=== PATIENT | male | born 1965 | race Caucasian/White ===

== ENCOUNTER 2020-11-29 16:07 | Emergency (ER) | payer BC, SELFPAY ==
[2020-11-29] VITALS (7 sets, daily range): BP systolic 142–199; BP diastolic 100–126; PULSE 100–106; RESP 16–29; TEMP 36.6; O2SAT 94–100; BMI 35.9
--- NOTE | 2020-11-29 16:19 | CTR_ITS ---
PROCEDURE INFORMATION: Exam: CT Abdomen And Pelvis With Contrast Exam date and time: 11/29/2020 5:38 PM Age: 55 years old Clinical indication: Abdominal pain; Localized; Left upper quadrant (luq); Additional info: Abd pain TECHNIQUE: Imaging protocol: Computed tomography of the abdomen and pelvis with intravenous contrast. Radiation optimization: All CT scans at this facility use at least one of these dose optimization techniques: automated exposure control; mA and/or kV adjustment per patient size (includes targeted exams where dose is matched to clinical indication); or iterative reconstruction. Contrast material: OMNI 300; Contrast volume: 95 ml; Contrast route: INTRAVENOUS (IV); COMPARISON: No relevant prior studies available. RADIATION DOSE METRICS: Total DLP (mGy-cm): 1666.5 FINDINGS: Lungs: The lung bases appear unremarkable. Liver: Scattered 3 mm hypodensities in the liver, too small to characterize. No acute hepatic abnormality. Gallbladder and bile ducts: Gallbladder is mildly distended, measuring 12 cm longitudinal by 4 cm transverse. No gallstones or gallbladder wall thickening. No biliary dilatation. Pancreas: The pancreas is normal in appearance. No pancreatic duct dilatation. Spleen: The spleen is normal in size and appearance. Adrenal glands: The adrenal glands appear within normal limits. Kidneys and ureters: Simple appearing bilateral renal cysts measuring up to 2.5 cm in diameter. No hydronephrosis. The ureters are unremarkable. Stomach and bowel: No acute gastric abnormality demonstrated. The small bowel is unremarkable as demonstrated. Appendix: The appendix is normal in appearance. No evidence of appendicitis. Intraperitoneal space: No pneumoperitoneum. No significant fluid collection. Vasculature: The aorta is atherosclerotic. No aortic aneurysm. Lymph nodes: No pathologically enlarged lymph nodes are demonstrated. Urinary bladder: The urinary bladder is unremarkable in appearance. Reproductive: Unremarkable as visualized. Bones/joints: Degenerative spine changes are noted. Soft tissues: Unremarkable. CT/CT abdomen pelvis w con* [id number] IMPRESSION: 1. Scattered 3 mm hypodensities in the liver, too small to characterize. No acute hepatic abnormality. 2. Gallbladder is mildly distended, measuring 12 cm longitudinal by 4 cm transverse. No gallstones or gallbladder wall thickening. No biliary dilatation. Consider gallbladder ultrasound if clinically indicated. 3. No acute bowel abnormality identified. COMMENTS: Consistent with the [employer] [place] [employer]'s Incidental Findings Committee white paper (J Am Valentine Radiol 2018): Any incidental renal lesion less than 1 cm or classified as too small to characterize, or any incidental cystic renal lesion characterized as simple-appearing, is likely benign. No follow-up imaging is recommended for these lesions per consensus recommendations based on imaging criteria. Radiation Dose CTDIVOL = (mGy): DLP = 1666.5 (mGy-cm)
--- NOTE | 2020-11-29 16:19 | ECG_ITS ---
[facility] Test Date: 2020-11-29 Pat Name: Samy Beth Department: Room: Gender: Male Control Manager: : 1965 Requested By: Michele Mohamud Order Number: [id number] Apolinar MD: Desirae Whitaker M.D. Measurements Intervals [place] Rate: 91 P: [place]: QRS: -42 QRSD: 101 T: 15 QT: 355 QTc: 439 Interpretive Statements ATRIAL FIBRILLATION PATTERN CONSISTENT WITH PULMONARY DISEASE INFERIOR MYOCARDIAL INFARCTION , PROBABLY OLD [40+ ms Q WAVE AND/OR ST/T ABNORMALITY IN II/aVF] No previous ECG available for comparison Electronically Signed On 11-29-2020 18:06:21 INVESTMENT RECOVERY TECHNICIAN by Desirae Whitaker M.D. [id number]
--- NOTE | 2020-11-29 16:20 | W.ED.ABDPA2 ---
Documented by User: Michele Valladares DO 11/30/20 06:51 HPI - Abdominal Pain General: Chief Complaint: Abdominal Pain Stated Complaint: L SIDE ABD PAIN Time Seen by Provider: 11/29/20 16:18 History of Present Illness: HPI narrative: 55-year-old male comes to clinic left upper quadrant abdominal pain began at around 230 this morning. No nausea vomiting or diarrhea no dysuria urgency or frequency. Denies any hematuria. He is not had any vomiting or diarrhea he tried some laxatives that actually seem to have made it worse. MD elicited complaint: abdominal pain Pertinent past history: none Onset (ago): hour(s) Pain Consistency: constant Quality: cramping Exacerbating factors: movement Relieving factors: rest Associated Symptoms: Reports anorexia, bloating, change in bowel habits, constipation, GI cramping, nausea and poor appetite; Denies belching, change in stool character, chills, coffee ground emesis, diarrhea, dyspepsia, dysuria, excessive flatus, fever(s), heartburn, hematochezia, hematuria, hematemesis, fecal incontinence, loose stools, melena, syncope and vomiting Review of Systems Const: Denies: fever(s) or chills ENMT: Denies: throat pain, ear or mastoid pain, nasal discharge or nasal congestion Card: Denies: syncope Resp: Denies: dyspnea, productive cough or non-productive cough GI: Reports: nausea, constipation, bloating, GI cramping and change in bowel habits; Denies: vomiting, hematemesis, coffee ground emesis, heartburn, diarrhea, belching, excessive flatus, fecal incontinence, change in stool character, hematochezia or melena : Denies: dysuria or hematuria Skin/Breast: Denies: rash or pruritus Physical Exam Const: COMMON NORMALS: no acute distress GENERAL APPEARANCE: cooperative and comfortable ORIENTATION/CONSCIOUSNESS: Yes awake, Yes oriented to person, Yes oriented to place and Yes oriented to time HENMT: COMMON NORMALS: normocephalic, atraumatic and hearing grossly normal bilaterally HEAD & SCALP: normocephalic and atraumatic Neck/C-Spine: COMMON NORMALS: no JVD Resp: COMMON NORMALS: normal respiratory effort, No retractions, No use of accessory muscles and clear to auscultation bilaterally AUSCULTATION: clear to auscultation bilaterally Cardio: COMMON NORMALS: no JVD, regular rate, regular rhythm and No murmurs present (Cardio) RATE: regular rate RHYTHM: regular rhythm GI: COMMON NORMALS: Soft to palpation and No hepatosplenomegaly present AUSCULTATION: Yes normoactive bowel sounds PALPATION: Yes Soft to palpation, No Tenderness to palpation present (GI), No Guarding due to palpation present (GI) and Yes No hepatosplenomegaly present Extremity: COMMON NORMALS: normal to inspection, capillary refill normal, no clubbing, cyanosis or edema, no calf tenderness and no pedal edema Neuro: SENSORIUM/ORIENTATION: Yes oriented to person, Yes oriented to place and Yes oriented to time Skin: COMMON NORMALS: no rashes or lesions noted GENERAL SKIN EXAM: no rashes or lesions noted Course Vital Signs: Vital signs: Vital Signs Temperature 97.8 F 11/29/20 16:08 Pulse Rate 102 H 11/29/20 20:34 Respiratory Rate 18 11/29/20 20:34 Blood Pressure 159/110 11/29/20 20:34 Pulse Oximetry 95 11/29/20 20:34 MDM - Abdominal Pain MDM Narrative: Medical decision making narrative: CT pending care turned to Dr. Toscano at change of shift. He is chart for final disposition diagnosis Lab Data: Labs: Lab Results 11/29/20 11/29/20 11/29/20 Range/Units 16:30 16:30 17:19 WBC 17.3 H (4.0-10.0) 10^3/ uL RBC 5.83 H (4.1-5.3) 10^6/u L Hgb 16.2 (11.7-16.6) g/dL Hct 48.2 (42.0-52.0) % MCV 82.7 (80-94) fL MCH 27.8 L (28.0-34.0) pg MCHC 33.6 (30.0-36.0) g/dL RDW 13.2 (12.1-15.1) % Plt Count 325 (130-400) 10^3/c mm MPV 10.0 (7.4-10.4) fL Neut % (Auto) 78.9 % Lymph % (Auto) 13.8 % [place] % (Auto) 6.2 % Eos % (Auto) 0.3 % Baso % (Auto) 0.3 % Neut # (Auto) 13.64 H (1.8-7.7) 10^3/u L Lymph # (Auto) 2.4 (0.8-4.8) 10^3/u L [place] # (Auto) 1.1 H (0.2-0.9) 10^3/u L Eos # (Auto) 0.1 (0.0-0.8) 10^3/u L Baso # (Auto) 0.1 (0.0-0.1) 10^3/u L Nucleated RBC % (a uto) 0 % Nucleated RBCs # 0.0 /100WBC Sodium 136 (136-145) mmol/L Potassium 3.2 L (3.5-5.1) mmol/L Chloride 97 L (98-107) mmol/L Carbon Dioxide 25 (22-29) mmol/L Anion Gap 17.2 (5-19) BUN 11 (6-20) mg/dL Creatinine 0.8 (0.7-1.2) mg/dL GFR Calculation 99.6 (90-130) mL/min Glucose 99 (65-115) mg/dL Calculated Osmolal ity 281 L (285-295) mOsm/k g Calcium 9.7 (8.5-10.5) mg/dL Magnesium 1.7 (1.7-2.3) mg/dL Total Bilirubin 0.3 (0.15-1.2) mg/dL AST 17 (0-40) U/L ALT 24 (0-41) U/L Alkaline Phosphata se 63 (40-130) IU/L Creatine Kinase 75 (39-308) U/L Total Protein 7.4 (6.6-8.7) g/dL Albumin 4.4 (3.5-5.2) g/dL Globulin 3.0 (1.3-4.6) g/dL Lipase 40 (13-60) U/L Urine Color Yellow (Yellow) Urine Appearance Clear (CLEAR) Urine pH 5.0 (5-7) Ur Specific Gravit y 1.015 (1.005-1.030) Urine Protein Neg (Negative) Urine Glucose (UA) Norm (Normal) Urine Ketones 2+ H (Negative) Urine Blood 2+ H (Negative) Urine Nitrate Negative (Negative) Urine Bilirubin Neg (Negative) Urine Urobilinogen Norm (Negative) mg/dL Ur Leukocyte Shari ase Negative (Negative) Urine RBC 0-4 H (0-2) /hpf Urine WBC None (0-5) /hpf Ur Squamous Epith Cells 0-4 H (0-5) /hpf Amorphous Sediment Not Reportable Urine Bacteria Trace (NONE) /hpf Discharge Plan Discharge Patient Disposition: Home Clinical Impression: Biliary colic Condition: Stable Prescriptions: New [place] 5-325 mg tablet 1 tab PO Q6H PRN (Reason: pain) Qty: 14 RF: 0 ondansetron 4 mg tablet,disintegrating 4 mg PO Q6H PRN (Reason: nausea and vomiting) Qty: 14 RF: 0 levofloxacin 750 mg tablet 750 mg PO DAILY 5 Days Qty: 5 RF: 0 No Action diltiazem HCl 180 mg capsule,extended release 24hr 180 mg PO DAILY@05 RF: 0 Tylenol Extra Strength 500 mg Tablet 1,000 mg PO PRN RF: 0 Benadryl 25 mg Capsule 50 mg PO PRN RF: 0 metoprolol tartrate 50 mg tablet 50 mg PO Q12H RF: 0 hydrochlorothiazide 25 mg tablet 25 mg PO DAILY@05 RF: 0 mupirocin 2 % ointment 1 applic TOPICAL DAILY RF: 0 Miralax 17 gram/dose Powder 17 g PO ONCE RF: 0 Xarelto 20 mg tablet 20 mg PO DAILY@18 RF: 0 Discharge Orders: Discharge ED (Routine); Ordered 11/29/20 Ordered By: He Toscano Referrals: Moe Betts MD [Physician] - 1-3 days Luis Mclean [Primary Care Provider] - Discharge Diet: Advance as tolerated Discharge Activity: Resume usual activity Patient Instructions: Biliary Colic (ED), Abdominal Pain (ED) Coding Level of Care Code ED Master Of Ceremonies for Chg Fwd Exam Comprehensive Documented by User: He Toscano MD 11/29/20 20:23 HPI - Abdominal Pain General: Chief Complaint: Abdominal Pain Stated Complaint: L SIDE ABD PAIN Time Seen by Provider: 11/29/20 16:18 Course Vital Signs: Vital signs: Vital Signs Temperature 97.8 F 11/29/20 16:08 Pulse Rate 102 H 11/29/20 20:34 Respiratory Rate 18 11/29/20 20:34 Blood Pressure 159/110 11/29/20 20:34 Pulse Oximetry 95 11/29/20 20:34 MDM - Abdominal Pain MDM Narrative: Medical decision making narrative: Samy presents with abdominal pain is likely biliary colic. He does have a gallstone in the neck of his gallbladder. He has no signs of cholecystitis or common bile duct dilatation. His pain is much improved here. We will place him on [place] having follow-up with surgery. He is to return if worsening. His abdominal exam at discharge is benign with no tenderness. Lab Data: Labs: Lab Results 11/29/20 11/29/20 11/29/20 Range/Units 16:30 16:30 17:19 WBC 17.3 H (4.0-10.0) 10^3/ uL RBC 5.83 H (4.1-5.3) 10^6/u L Hgb 16.2 (11.7-16.6) g/dL Hct 48.2 (42.0-52.0) % MCV 82.7 (80-94) fL MCH 27.8 L (28.0-34.0) pg MCHC 33.6 (30.0-36.0) g/dL RDW 13.2 (12.1-15.1) % Plt Count 325 (130-400) 10^3/c mm MPV 10.0 (7.4-10.4) fL Neut % (Auto) 78.9 % Lymph % (Auto) 13.8 % [place] % (Auto) 6.2 % Eos % (Auto) 0.3 % Baso % (Auto) 0.3 % Neut # (Auto) 13.64 H (1.8-7.7) 10^3/u L Lymph # (Auto) 2.4 (0.8-4.8) 10^3/u L [place] # (Auto) 1.1 H (0.2-0.9) 10^3/u L Eos # (Auto) 0.1 (0.0-0.8) 10^3/u L Baso # (Auto) 0.1 (0.0-0.1) 10^3/u L Nucleated RBC % (a uto) 0 % Nucleated RBCs # 0.0 /100WBC Sodium 136 (136-145) mmol/L Potassium 3.2 L (3.5-5.1) mmol/L Chloride 97 L (98-107) mmol/L Carbon Dioxide 25 (22-29) mmol/L Anion Gap 17.2 (5-19) BUN 11 (6-20) mg/dL Creatinine 0.8 (0.7-1.2) mg/dL GFR Calculation 99.6 (90-130) mL/min Glucose 99 (65-115) mg/dL Calculated Osmolal ity 281 L (285-295) mOsm/k g Calcium 9.7 (8.5-10.5) mg/dL Magnesium 1.7 (1.7-2.3) mg/dL Total Bilirubin 0.3 (0.15-1.2) mg/dL AST 17 (0-40) U/L ALT 24 (0-41) U/L Alkaline Phosphata se 63 (40-130) IU/L Creatine Kinase 75 (39-308) U/L Total Protein 7.4 (6.6-8.7) g/dL Albumin 4.4 (3.5-5.2) g/dL Globulin 3.0 (1.3-4.6) g/dL Lipase 40 (13-60) U/L Urine Color Yellow (Yellow) Urine Appearance Clear (CLEAR) Urine pH 5.0 (5-7) Ur Specific Gravit y 1.015 (1.005-1.030) Urine Protein Neg (Negative) Urine Glucose (UA) Norm (Normal) Urine Ketones 2+ H (Negative) Urine Blood 2+ H (Negative) Urine Nitrate Negative (Negative) Urine Bilirubin Neg (Negative) Urine Urobilinogen Norm (Negative) mg/dL Ur Leukocyte Shari ase Negative (Negative) Urine RBC 0-4 H (0-2) /hpf Urine WBC None (0-5) /hpf Ur Squamous Epith Cells 0-4 H (0-5) /hpf Amorphous Sediment Not Reportable Urine Bacteria Trace (NONE) /hpf Imaging Data ^: CT Abd/Pel: Radiologist's impression: [address] [place] [address] CT Scan Report Signed Patient: Samy Beth Unit #: [id number] : 1965 Age/Sex: 55 / M ADM Date: 11/29/20 Loc: ER Room/Bed: Attending Dr: Ordering Provider/Ordering MD: Michele Valladares DO Date of Service: 11/29/20 Procedure(s): CT abdomen pelvis w con* [id number] Accession Number(s): [id number] Report Number: [id number] PROCEDURE INFORMATION: Exam: CT Abdomen And Pelvis With Contrast Exam date and time: 11/29/2020 5:38 PM Age: 55 years old Clinical indication: Abdominal pain; Localized; Left upper quadrant (luq); Additional info: Abd pain TECHNIQUE: Imaging protocol: Computed tomography of the abdomen and pelvis with intravenous contrast. Radiation optimization: All CT scans at this facility use at least one of these dose optimization techniques: automated exposure control; mA and/or kV adjustment per patient size (includes targeted exams where dose is matched to clinical indication); or iterative reconstruction. Contrast material: OMNI 300; Contrast volume: 95 ml; Contrast route: INTRAVENOUS (IV); COMPARISON: No relevant prior studies available. RADIATION DOSE METRICS: Total DLP (mGy-cm): 1666.5 FINDINGS: Lungs: The lung bases appear unremarkable. Liver: Scattered 3 mm hypodensities in the liver, too small to characterize. No acute hepatic abnormality. Gallbladder and bile ducts: Gallbladder is mildly distended, measuring 12 cm longitudinal by 4 cm transverse. No gallstones or gallbladder wall thickening. No biliary dilatation. Pancreas: The pancreas is normal in appearance. No pancreatic duct dilatation. Spleen: The spleen is normal in size and appearance. Adrenal glands: The adrenal glands appear within normal limits. Kidneys and ureters: Simple appearing bilateral renal cysts measuring up to 2.5 cm in diameter. No hydronephrosis. The ureters are unremarkable. Stomach and bowel: No acute gastric abnormality demonstrated. The small bowel is unremarkable as demonstrated. Appendix: The appendix is normal in appearance. No evidence of appendicitis. Intraperitoneal space: No pneumoperitoneum. No significant fluid collection. Vasculature: The aorta is atherosclerotic. No aortic aneurysm. Lymph nodes: No pathologically enlarged lymph nodes are demonstrated. Urinary bladder: The urinary bladder is unremarkable in appearance. Reproductive: Unremarkable as visualized. Bones/joints: Degenerative spine changes are noted. Soft tissues: Unremarkable. CT/CT abdomen pelvis w con* [id number] IMPRESSION: 1. Scattered 3 mm hypodensities in the liver, too small to characterize. No acute hepatic abnormality. 2. Gallbladder is mildly distended, measuring 12 cm longitudinal by 4 cm transverse. No gallstones or gallbladder wall thickening. No biliary dilatation. Consider gallbladder ultrasound if clinically indicated. 3. No acute bowel abnormality identified. Discharge Plan Discharge Patient Disposition: Home Clinical Impression: Biliary colic Condition: Stable Prescriptions: [place] 5-325 mg tablet 1 tab PO Q6H PRN (Reason: pain) Qty: 14 RF: 0 ondansetron 4 mg tablet,disintegrating 4 mg PO Q6H PRN (Reason: nausea and vomiting) Qty: 14 RF: 0 levofloxacin 750 mg tablet 750 mg PO DAILY 5 Days Qty: 5 RF: 0 No Action diltiazem HCl 180 mg capsule,extended release 24hr 180 mg PO DAILY@05 RF: 0 Tylenol Extra Strength 500 mg Tablet 1,000 mg PO PRN RF: 0 Benadryl 25 mg Capsule 50 mg PO PRN RF: 0 metoprolol tartrate 50 mg tablet 50 mg PO Q12H RF: 0 hydrochlorothiazide 25 mg tablet 25 mg PO DAILY@05 RF: 0 mupirocin 2 % ointment 1 applic TOPICAL DAILY RF: 0 Miralax 17 gram/dose Powder 17 g PO ONCE RF: 0 Xarelto 20 mg tablet 20 mg PO DAILY@18 RF: 0 Discharge Orders: Discharge ED (Routine); Ordered 11/29/20 Ordered By: He Toscano Referrals: Moe Betts MD [Physician] - 1-3 days Luis Mclean [Primary Care Provider] - Discharge Diet: Advance as tolerated Discharge Activity: Resume usual activity Patient Instructions: Biliary Colic (ED), Abdominal Pain (ED) Coding Level of Care Code ED Master Of Ceremonies for Chg Fwd Exam Comprehensive
[2020-11-29] MEDS: sodium chloride 0.9% 1,000 ML 999 ML IV (16:44)
[2020-11-29] MEDS: morphine 4 mg/mL SDV 1 mL IVP ×3 (16:44→19:46)
[2020-11-29] MEDS: ondansetron 2 mg/ML SDV 2 mL 4 MG IVP (16:44)
[2020-11-29 16:53] LABS: Basophils # 0.1 10^3/uL (0.0-0.1); Basophils % 0.3 %; Eosinophils # 0.1 10^3/uL (0.0-0.8); Eosinophils % 0.3 %; Hematocrit 48.2 % (42.0-52.0); Hemoglobin 16.2 g/dL (11.7-16.6); Lymphocytes # 2.4 10^3/uL (0.8-4.8); Lymphocytes % 13.8 %; Mean Corpuscular HGB Conc 33.6 g/dL (30.0-36.0); Mean Corpuscular Hemoglobin 27.8 pg (28.0-34.0); Mean Corpuscular Volume 82.7 fL (80-94); Monocytes # 1.1 10^3/uL (0.2-0.9); Monocytes % 6.2 %; Neutrophils # 13.64 10^3/uL (1.8-7.7); Neutrophils % 78.9 %; Nucleated Red Blood Cells % 0 %; Platelet Count 325 10^3/cmm (130-400); Red Blood Count 5.83 10^6/uL (4.1-5.3); Red Cell Distribution Width 13.2 % (12.1-15.1); White Blood Count 17.3 10^3/uL (4.0-10.0)
[2020-11-29 17:36] LABS: Alanine Aminotransferase 24 U/L (0-41); Albumin Level 4.4 g/dL (3.5-5.2); Alkaline Phosphatase 63 IU/L (40-130); Anion Gap 17.2 (5-19); Aspartate Amino Transferase 17 U/L (0-40); Blood Urea Nitrogen 11 mg/dL (6-20); Calcium 9.7 mg/dL (8.5-10.5); Carbon Dioxide 25 mmol/L (22-29); Chloride 97 mmol/L (98-107); Creatine Phosphokinase 75 U/L (39-308); Glomerular Filtration Rate 99.6 mL/min (90-130); Glucose 99 mg/dL (65-115); Lipase 40 U/L (13-60); Magnesium 1.7 mg/dL (1.7-2.3); Osmolality Calculated 281 mOsm/kg (285-295); Potassium 3.2 mmol/L (3.5-5.1); Sodium 136 mmol/L (136-145); Total Bilirubin 0.3 mg/dL (0.15-1.2); Total Protein 7.4 g/dL (6.6-8.7)
[2020-11-29 17:42] LABS: Add Urine Microscopic? YES; Bilirubin Urine Neg (Negative); Blood Urine 2+ (Negative); Glucose Urine UA Norm (Normal); Ketones Urine 2+ (Negative); Leukocyte Esterase Urine Negative (Negative); Nitrate Urine Negative (Negative); Protein Urine Neg (Negative); Specific Gravity, Urine 1.015 (1.005-1.030); Urine Appearance Clear (CLEAR); Urine Color Yellow (Yellow); Urobilinogen Urine Norm (Negative)
--- NOTE | 2020-11-29 17:48 | PC.NURSE ---
pt to CT scan by stretcher with tech
[2020-11-29 17:59] LABS: Add Urine Culture? No; Bacteria Urine TRACE /hpf; RBC Urine 0-4 /hpf (0-2); Squamous Epithelial Cell Urine 0-4 /hpf (0-5)
[2020-11-29] MEDS: iohexol 300 mg/mL 100 mL Btl IV (18:12)
--- NOTE | 2020-11-29 19:02 | XR_ITS ---
WS: [id number] Exam: XR chest 1V portable [id number] Date/Time of Exam: 11/29/2020 7:06 PM Reason For Exam: cp Comparison 08/08/2009. Findings: The lungs are clear and fully expanded. Costophrenic angles are sharp. No infiltrates. Bronchovascula r relief appears normal. Cardiac silhouette is unremarkable. Bony elements are intact. XR/XR chest 1V portable [id number] IMPRESSION: Unremarkable chest radiograph.
--- NOTE | 2020-11-29 19:29 | US_ITS ---
WS: [id number] ULTRASOUND ABDOMEN LIMITED CLINICAL INFORMATION: abd pain COMPARISON: None. FINDINGS: Liver Size: Mild hepatomegaly Craniocaudal length: 16.3 cm. Echogenicity: Normal. Surface nodularity: None. Mass (size and location): None. Bile ducts Intrahepatic ducts: Normal. Common bile duct diameter: 0.5 cm. Gallbladder Cholelithiasis Gallstones: Gallstone in the neck of the gallbladder. Gallbladder sludge: None. Gallbladder wall thickening: None. Pericholecystic fluid: None. Sonographic Aguiar sign: Absent. Pancreas Normal as visualized. Right kidney: Normal. Hydronephrosis: None. Size: 11.5 cm x 7.1 cm x 6.0 cm. Abdominal aorta and IVC Visualized portions are normal. Ascites: None. US/US gall bladder [id number] IMPRESSION: 1. Mild hepatomegaly. 2. Gallbladder calculus in the gallbladder neck. No gallbladder wall thickenin g or pericholecystic fluid. 3. Normal common bile duct. 4. No hydronephrosis in right kidney.
--- NOTE | 2020-11-30 10:05 | DCPLANNER ---
web services manager had message to schedule a follow up appointment for patient with general surgery. web services manager emailed patients information to both Jennifer and Chelle at [facility] General Surgery. Patients information will be printed and reviewed. Clinic will call patient with appointment information.
--- NOTE | 2020-12-04 12:33 | DCPLANNER ---
Patient has a follow up appointment scheduled for , December 06, [address] at 9:[address] Betts. Clinic will call patient with appointment information.
--- NOTE | 2021-01-23 12:58 | DCPLANNER ---
Patient had a follow up appointment scheduled for 12.06.[address] Betts at general surgery - patient did attend appointment.
== END 2020-11-29 20:38 | disposition home or self-care (01) ==
PROVIDERS: Family Medicine; Emergency Provider Emergency Medicine; PCP Family Medicine
DX: K80.50 Calculus of bile duct without cholangitis or cholecystitis without obstruction (principal)
CPT/HCPCS: 12345; 71045; 74177; 76705; 80053; 81001; 82550; 83690; 83735; 85025; 93005; 96361; 96374; 96375; 96376; 99283; 99284; J2270; J2405; J7030; Q9967

== ENCOUNTER → 2020-12-11 16:54 | Outpatient (BNVA) | payer BC, SELFPAY | PROVIDERS: PCP Family Medicine; Visit Provider Surgery | DX: Z01.812 Encounter for preprocedural laboratory examination (principal); K80.50 Calculus of bile duct without cholangitis or cholecystitis without obstruction | CPT/HCPCS: 87635 ==

== ENCOUNTER → 2020-12-19 10:32 | Outpatient (BNVA) | payer BC, SELFPAY | PROVIDERS: PCP Family Medicine; Referring Provider Surgery; Visit Provider Surgery | DX: Z01.818 Encounter for other preprocedural examination (principal) | CPT/HCPCS: 87635 ==

== ENCOUNTER 2020-12-25 05:38 | Day surgery (SDC) | payer BC, SELFPAY ==
[2020-12-25] VITALS (10 sets, daily range): BP systolic 130–168; BP diastolic 99–113; PULSE 95–109; RESP 12–20; TEMP 36.1–36.2; O2SAT 94–99
[2020-12-25] MEDS: sodium chloride 0.9% 1,000 ML 30 ML IV (06:22)
[2020-12-25] MEDS: heparin 5,000 unit/mL INJ 1 mL 2000 UNIT SUBCUT (06:22)
--- NOTE | 2020-12-25 06:25 | ANES.PREANE2 ---
Pre-Anesthetic Assessment Pre-Anesthetic Assessment: Height/Weight: Height 1.78 m Weight 108.862 kg Temp Pulse Resp BP Pulse Ox 97.0 F L 106 H 18 130/100 97 12/25/20 06:01 12/25/20 06:01 12/25/20 06:01 12/25/20 06:01 12/25/20 06:01 Preop Diagnosis: Symptomatic cholelithiasis Proposed Procedure: Operation Date: 12/25/20 07:00 Proposed Procedures p Laparoscopic Cholecystectomy 58808 k80.50(Not Applicable) - Moe Betts MD Was Beta Jack taken within 24 hours: Yes Last intake: Intake Last Liquid Date 12/24/20 Last Liquid Time 19:00 Last Solid Date 12/23/20 Last Solid Time 20:00 Social: Social History: No alcohol and No tobacco Exam: Pre-Anes Outpt Exam: alert, oriented x 3 and clear to auscultation bilaterally Additional Exam Findings (including area of procedure): irregular Airway: Submandibular: WNL Cervical ROM: WNL MP: 3 Dentition: Full CV/HEM: CV/HEM: Afib, Arrythmia and HTN Metabolic: Metabolic: Morbid obesity Anesthetic Plan: ASA status: 3 Anesthesia: General Risk of > 500 ml blood loss (7ml/kg in children): No Meds/Allergies Current Medications: Current Medications Generic Name Dose Route Start Last Admin Trade Name Freq PRN Reason Stop Dose Admin Sodium Chloride 1,000 mls @ 30 ml s/hr 12/25/20 06:00 12/25/20 06:22 Sodium Chloride 0.9% IV 12/26/20 05:59 30 mls/hr .Q24H RENETTA Administration Data Anesthesia Cardiac Studies: No Data to Display
--- NOTE | 2020-12-25 06:31 | W.PM.OPSUD ---
Surgery/Procedure H&P Update DATE OF PROCEDURE: December 25, 2020 DATE H&P PERFORMED: 12/06/20 H&P UPDATE INFORMATION: I have reviewed H&P completed within last 30 days, I have examined patient prior to procedure and No changes to prior documentation PREOP DIAGNOSIS: Symptomatic cholelithiasis PRIMARY INDICATION FOR PROCEDURE: The same PLANNED PROCEDURE: Operation Date: 12/25/20 07:00 Proposed Procedures p Laparoscopic Cholecystectomy 71721 k80.50(Not Applicable) - Moe Betts MD
[2020-12-25] MEDS: lidocaine 2% INJ 20 mL INJECTION (08:30)
--- NOTE | 2020-12-25 08:35 | PM.OP ---
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 Plan of care; After thorough history physical examination and reviewing the chart and images with my personal intrepreatation.I counseled the patient for laparoscopic cholecystectomy possible open, indications risks including but not limited injury to the common bile duct and/or other viscera,that may require potential future surgical interventions including but not limited to ERCP and or laparatomy that may include Hepatobiliary surgery.Benefits and alternatives all discussed with the patient, and patient did agree to proceed accordingly. All questions have been answered and all concerns have been addressed to patient's satisfaction. Rationale was carefully and clearly discussed with the patient.Appropriate informed consent have been reviewed and signed. Procedure: Patient was identified in the holding area and taken back to the operative suite, placed in supine position intubated by anesthesia . Time-out was done verifying the patient's name/date of /planned procedure and destination after the procedure, all were in agreement. SCDs confirmed to be functioning, preoperative antibiotics administered per protocol, and beta duane protocol was confirmed. Patient was appropriately secured to the table, footboard was applied to the OR table, before prep and drape anesthesia was asked to tilt the table back and forth to make sure that the patient is appropriately secured and she was. Prep and drape of the abdomen was done under the usual sterile technique, followed by that supraumbilical skin incision,skin incision was done by a 15 blade knife, and stay sutures were applied to the fascia and Goldberg trocar technique was used to enter the abdominal without injuring any abdominal viscera, started by low flow gas insufflation followed by a high flow, started with a 10 mm laparoscope and under direct vision there was no evidence of any injuries, the scope then switched to a 30? ,10 millimeter scope and under direct visualization 5 millimeter trocar was inserted in the epigastric region followed by two 5 mm trocars were inserted in the right upper quadrant that was done after injection of local lidocaine 2% at all incision sites. Gallbladder showed acute calculus cholecystitis with extensive edema &with adhesions, fatty liver was appreciated as well. Patient was then positioned in the head up and tilted to the left Ratcheted forceps were introduced into the lateral most 5mm port and was applied unto the fundus of the gallbladder cephalad and using 5 mm tenaculum forceps the infundibulum of the gallbladder was retracted laterally. Using Maryland forceps then L-hook cautery to dissect the peritoneum overlying the Calot's triangle which was then opened medially and laterally until the cystic duct and the cystic artery were skeletonized.Dissection was carried along the body of the gallbladder and after ensuring critical view of safety was identfied. Cystic duct and cystic artery where seen connected to the gallbladder. Clips were applied on the cystic duct towards the common bile duct 1 towards the gallbladder then divided is in sharp scissors,2 clips were then applied onto the cystic artery and 1 towards the gallbladder and divided by sharp scissors. Additional clip was applied onto a small traversing vessel and divided. Dissection was then carried along of the gallbladder from the gallbladder fossa using cautery as well as sharp dissection with heat energy. The gallbladder then was dissected out from the gallbladder fossa totally , cholecystectomy was then achieved and was placed in an Endo Catch bag and then retrieved from the Goldberg trocar site under direct visualization using a 5 mm 30? scope through the epigastric trocar, specimen was then passed to the circulating nurse to go for permanent pathology, thorough irrigation and hemostasis was done to the gallbladder fossa after hemostasis was secured and finalized by placement of large piece of Surgicel at the gallbladder fossa, final survey laparoscopy was done that showed no injuries.Additional suction irrigation was obtained. The supraumbilical fascial defect was then closed using interrupted #1 PDS sutures using a fascial closure device ;Eliceo Miranda under direct visualization Gas was allowed to deflate,Trocars were then taken out under direct vision there was no evidence of bleeding Specimen was passed to the circulating nurse for permanent pathology. No drains were placed and the supraumbilical incision as well as all trocar sites were closed by 3-0 Vicryl followed by 4-0 Monocryl to approximate the skin edges of the supraumbilical incision,dressing was applied in the form of surgical glue and the patient patient got extubated and was taken to recovery area in a stable condition. Count of sponges,needles and instruments were completed at the end of the procedure I was present for the whole entire procedure.
[2020-12-25] MEDS: fentaNYL 50 mcg/mL INJ 2mL 100 MCG IVP (08:51)
[2020-12-25] MEDS: metoprolol tartrate 1 mg/1 mL SDV 5 mL 5 MG IV (08:57)
--- NOTE | 2020-12-25 09:06 | P.PCN_ITS ---
PACU note PACU note: VSS, Good respiratory effort, report to SALES REPRESENTATIVE PUBLIC UTILITIES Post-Anesthesia Exam: awake
--- NOTE | 2020-12-25 09:06 | PM.PACU ---
PACU note PACU note: VSS, Good respiratory effort, report to FACULTY RESEARCH PHYSICIAN Post-Anesthesia Exam: awake
--- NOTE | 2020-12-25 09:27 | ANE.PACU2 ---
Inpatient post-anesthesia follow up: Airway intact: Yes Vital signs: Temperature 97.0 F Pulse Rate 103 Respiratory Rate 16 Blood Pressure 141/105 Pulse Oximetry 94 Oxygen Delivery Me thod Room Air Oxygen Flow Rate 6 Fraction of Inspir ed Oxygen Hydration adequate: Yes Nausea and vomiting: No Pain level: 2 Mental status: Baseline
[2020-12-25] MEDS: HYDROcodone-acetaminophen 5-325 mg Tablet 1 TAB PO (09:40)
== END 2020-12-25 10:10 | disposition home or self-care (01) ==
PROVIDERS: PCP Family Medicine; Visit Provider Surgery
PROC: 0FT44ZZ Resection of Gallbladder, Percutaneous Endoscopic Approach (ICD-10-PCS; CPT 47562; principal; 2020-12-25 07:00)
DX: K80.10 Calculus of gallbladder with chronic cholecystitis without obstruction (principal); I48.91 Unspecified atrial fibrillation; I10 Essential (primary) hypertension; E66.01 Morbid (severe) obesity due to excess calories; Z68.34 Body mass index [BMI] 34.0-34.9, adult
CPT/HCPCS: 47562; 88304; 96372; J0131; J0690; J1100; J1644; J2370; J2405; J2704; J2710; J3010; J3490; J7030

== ENCOUNTER 2021-05-13 07:47 | Outpatient (CLI) | payer BC, SELFPAY ==
--- NOTE | 2021-05-13 07:54 | MR_ITS ---
WS: [id number] MRI NECK with and without CONTRAST. COMPARISON: None Multiplanar, multisequence imaging is performed with and without contrast. Soft tissue mass centered in the nasopharynx extending bilaterally across the posterior nasopharynx. This mass extends over a length of 3.8 cm extending from the posterior sphenoethmoid region to the or al pharynx. Mass extends across the midline by 3.6 cm and anterior posterior by 2.9 cm. There is enha ncement which is intermediate but diffuse. There is a lobulated mass of different signal intensity wi th peripheral enhancement centered in the posterior ethmoid air cells extending across the midline. T his lobulated cystic mass with peripheral enhancement is closely associated with the nasopharyngeal m ass. Greater extension of this cystic mass may be into an pneumatized RIGHT sphenoid wing. Mass exten ds into the RIGHT pterygopalatine fossa and may be causing widening of the fossa. There does appear t o be remodeling of the clivus and mild bony expansion of the posterior ethmoid air cells. There is ab normal enhancement and tumor extension into the parapharyngeal space, LEFT greater than RIGHT. Cervical chain lymph nodes. The largest lymph node measures 8 mm at level IIa on the LEFT. There are multiple cervical chain lymph nodes bilaterally but no lymph nodes greater than centimeter. MR/MR orbit face neck wo/w* [id number] IMPRESSION: 1. Enhancing soft tissue mass centered in the nasopharynx extends over a lengt h of 3.8 cm x 3.6 x 2.9 cm. Mass extends into the parapharyngeal space, greates t on the LEFT. Mass also extends into the RIGHT pterygopalatine fossa with wide emiliano. Most concerning for neoplasm. 2. There is an additional lobulated peripherally enhancing or cystic mass cent ered in the posterior ethmoid air cells with extension into the clivus remodeli ng. May be an associated mucocele. 3. Cervical chain lymph nodes are numerous but subcentimeter. Most concerning on the LEFT at level IIa. 4. Recommend follow-up CT neck with IV contrast to better evaluate the bone an d remodeling. Direct visualization with biopsy should also be performed.
[2021-05-13] MEDS: gadobenate dimeglumine 20 mL vial IV (09:57)
== END 2021-05-13 07:48 | disposition home or self-care (01) ==
LOC: RADWPI 07:50
PROVIDERS: PCP Family Medicine; Visit Provider Specialist
DX: D38.5 Neoplasm of uncertain behavior of other respiratory organs (principal)
CPT/HCPCS: 70543; A9577

== ENCOUNTER 2021-05-17 10:15 | Outpatient (CLI) | payer BC, SELFPAY ==
[2021-05-17 10:40] LABS: Basophils # 0.1 10^3/uL (0.0-0.1); Basophils % 1.1 %; Eosinophils # 0.1 10^3/uL (0.0-0.8); Eosinophils % 1.4 %; Hematocrit 48.9 % (42.0-52.0); Hemoglobin 15.9 g/dL (11.7-16.6); Lymphocytes # 2.1 10^3/uL (0.8-4.8); Lymphocytes % 27.3 %; Mean Corpuscular HGB Conc 32.5 g/dL (30.0-36.0); Mean Corpuscular Hemoglobin 27.1 pg (28.0-34.0); Mean Corpuscular Volume 83.4 fL (80-94); Mean Platelet Volume 9.6 fL (7.4-10.4); Monocytes # 0.7 10^3/uL (0.2-0.9); Monocytes % 8.7 %; Neutrophils # 4.77 10^3/uL (1.8-7.7); Neutrophils % 60.7 %; Nucleated Red Blood Cells % 0 %; Platelet Count 369 10^3/cmm (130-400); Red Blood Count 5.86 10^6/uL (4.1-5.3); Red Cell Distribution Width 13.6 % (12.1-15.1); White Blood Count 7.9 10^3/uL (4.0-10.0)
[2021-05-17 11:03] LABS: Blood Urea Nitrogen 13 mg/dL (6-20); Calcium 9.6 mg/dL (8.5-10.5); Carbon Dioxide 30 mmol/L (22-29); Chloride 98 mmol/L (98-107); Glucose 105 mg/dL (65-115); Osmolality Calculated 286 mOsm/kg (285-295); Sodium 138 mmol/L (136-145)
[2021-05-17 11:12] LABS: Anion Gap 14.1 (5-19); Potassium 4.1 mmol/L (3.5-5.1)
--- NOTE | 2021-05-17 13:46 | ECG_ITS ---
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
== END 2021-05-17 10:16 | disposition home or self-care (01) ==
PROVIDERS: PCP Family Medicine; Visit Provider Specialist
DX: D37.05 Neoplasm of uncertain behavior of pharynx (principal); I48.91 Unspecified atrial fibrillation
CPT/HCPCS: 80048; 85025; 93005

== ENCOUNTER 2022-05-20 16:19 | Outpatient (CLI) | payer OTHER, SELFPAY ==
--- NOTE | 2022-05-20 16:51 | XRR_ITS ---
PROCEDURE INFORMATION: Exam: XR Chest Exam date and time: 05/20/2022 5:11 PM Age: 56 years old Clinical indication: Shortness of breath; Patient HX: HX of nasal pharynx cancer; Additional info: Rule out bullous disease TECHNIQUE: Imaging protocol: Radiologic exam of the chest. Views: 2 views. PA and Lateral COMPARISON: CR XR chest 1V portable [id number] 11/29/2020 7:08 PM FINDINGS: Lungs: There are normal lung volumes without interstitial or airspace opacities. Pleural spaces: There are no pleural effusions or pneumothorax. Heart/Mediastinum: The heart size is normal. There is a mildly tortuous thoracic aorta. The trachea is in the midline. Bones/joints: No acute abnormalities. Surgical clips are seen in the right upper quadrant of the abdomen, likely related to prior cholecystectomy. XR/XR chest 2V* [id number] IMPRESSION: No chest radiographic evidence of acute cardiopulmonary disease.
--- NOTE | 2022-05-20 16:57 | ECG_ITS ---
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 Measurements Intervals [place] Rate: 98 P: HI: QRS: -46 QRSD: 87 T: 76 QT: 356 QTc: 455 Interpretive Statements ATRIAL FIBRILLATION LEFT AXIS DEVIATION [QRS AXIS < -30] Compared to ECG 05/17/2021 10:43:57 Left-axis deviation now present Electronically Signed On 05-21-2022 16:40:19 CDT by Santana Calabrese M.D. [id number]
== END 2022-05-20 16:20 | disposition home or self-care (01) ==
PROVIDERS: PCP Family Medicine; Visit Provider Nurse Practitioner Family
DX: Z13.6 Encounter for screening for cardiovascular disorders (principal); R06.02 Shortness of breath
CPT/HCPCS: 71046; 93005

== ENCOUNTER → 2022-06-30 10:46 | Outpatient (BNVA) | payer OTHER, SELFPAY | PROVIDERS: PCP Family Medicine; Visit Provider Family Medicine | DX: Z01.818 Encounter for other preprocedural examination (principal) | CPT/HCPCS: 87426 ==

== ENCOUNTER 2023-03-11 14:02 | Outpatient (CLI) | payer OTHER, SELFPAY | END 2023-03-11 14:03 | disposition home or self-care (01) | LOC: LAB 14:02 | PROVIDERS: PCP Family Medicine; Visit Provider Specialist | DX: C44.311 Basal cell carcinoma of skin of nose (principal) | CPT/HCPCS: 88304; 88331 ==

== ENCOUNTER → 2024-07-07 10:03 | Outpatient (BNVA) | payer OTHER, SELFPAY | PROVIDERS: PCP Family Medicine; Referring Provider Thoracic Surgery (Cardiothoracic Vascular Surgery); Visit Provider Internal Medicine Cardiovascular Disease | DX: Z13.6 Encounter for screening for cardiovascular disorders (principal); M27.2 Inflammatory conditions of jaws; I21.19 ST elevation (STEMI) myocardial infarction involving other coronary artery of inferior wall; I48.91 Unspecified atrial fibrillation; Q24.8 Other specified congenital malformations of heart | CPT/HCPCS: 93005 ==

== ENCOUNTER 2024-07-07 10:14 | Outpatient (CLI) | payer OTHER, SELFPAY ==
--- NOTE | 2024-07-07 10:24 | XR_ITS ---
WS: [id number] Examination: XR chest 2V* [id number] Reason for Exam: Hyperbaric oxygen treatment screening Date: 07/07/2024 Comparison: 05/20/2022 Findings: The heart is normal in size. The mediastinum not widened. The no are not enlarged. There is no pulmonary edema or pleural effusion. There is no dense consolidative change. Hypertrophic changes of the thoracic spine are present. XR/XR chest 2V* [id number] Impression: No acute lung process is appreciated.
[2024-07-07 10:48] LABS: Basophils # 0.1 10^3/uL (0.0-0.1); Eosinophils # 0.1 10^3/uL (0.0-0.8); Eosinophils % 1.2 %; Hematocrit 43.3 % (37-53); Lymphocytes # 1.6 10^3/uL (0.8-4.8); Lymphocytes % 17.8 %; Mean Corpuscular HGB Conc 33.7 g/dL (30-55); Mean Corpuscular Hemoglobin 27.5 pg (27-33); Mean Corpuscular Volume 81.5 fl (82-101); Mean Platelet Volume 9.7 fL (7.4-10.4); Monocytes % 10.7 %; Neutrophils # 6.21 10^3/uL (1.8-7.7); Neutrophils % 68.6 %; Nucleated Red Blood Cells % 0 %; Platelet Count 325 10^3/cmm (157-399); Red Blood Count 5.31 10^6/uL (3.85-5.65); Red Cell Distribution Width 15.2 % (12.1-15.1); White Blood Count 9.05 10^3/uL (3.29-11.43)
[2024-07-07 11:07] LABS: Alanine Aminotransferase 22 U/L (0-41); Albumin Level 4.3 g/dL (3.5-5.2); Alkaline Phosphatase 74 U/L (40-130); Anion Gap 18.5 (5-19); Aspartate Amino Transferase 16 U/L (0-40); Blood Urea Nitrogen 25 mg/dL (8-23); Calcium 9.2 mg/dL (8.5-10.5); Carbon Dioxide 24 mmol/L (22-29); Chloride 97 mmol/L (98-107); Glomerular Filtration Rate 47.6 mL/min (90-130); Glucose 110 mg/dL (65-115); Osmolality Calculated 287 mOsm/kg (285-295); Potassium 3.5 mmol/L (3.5-5.1); Sodium 136 mmol/L (136-145); Total Bilirubin 0.4 mg/dL (0.15-1.2); Total Protein 7.3 g/dL (6.6-8.7)
== END 2024-07-07 10:15 | disposition home or self-care (01) ==
PROVIDERS: PCP Family Medicine; Visit Provider Thoracic Surgery (Cardiothoracic Vascular Surgery)
DX: M27.2 Inflammatory conditions of jaws (principal); M89.38 Hypertrophy of bone, other site
CPT/HCPCS: 36415; 71046; 80053; 85025

== ENCOUNTER 2024-11-30 08:03 | Day surgery (SDC) | payer OTHER, SELFPAY ==
[2024-11-30 08:19] VITALS: BP 95/67; PULSE 81; RESP 16; TEMP 36.2; O2SAT 98
[2024-11-30] MEDS: sodium chloride 0.9% 500 ML 15 ML IV (08:32)
--- NOTE | 2024-11-30 08:38 | ANES.PREANE2 ---
Pre-Anesthetic Assessment Height/Weight: Height 1.78 m Weight 104.326 kg Temp Pulse Resp BP Pulse Ox O2 Del Method 97.1 F L 81 16 95/67 98 Room Air 11/30/24 08:19 11/30/24 08:19 11/30/24 08:19 11/30/24 08:19 11/30/24 08:19 11/30/24 08:19 Operation Date: 11/30/24 09:00 Proposed Procedures p Colonoscopy 46849, G0105, Z12.11, z86.0100(Not Applicable) - Luis Coffman DO Familial anesthetic complications: None Was Beta Jack taken within 24 hours: N/A Was Clonidine taken within 24 hours: N/A Last intake: Intake Last Liquid Date 11/30/24 Last Liquid Time 04:00 Last Solid Date 11/29/24 Last Solid Time 08:00 Social No alcohol and No tobacco Exam alert, oriented x 3, clear to auscultation bilaterally and regular rate & rhythm Airway Mallampati: Class II Dentition: other (no teeth) CV/HEM Atrial Fibrillation and Hypertension Anesthetic Plan ASA status: 3 Anesthesia: MAC Risk of > 500 ml blood loss (7ml/kg in children): No Medications/Allergies Home Medications Medication Instructions Recorded Confirmed Last Taken Type diltiazem HCl 180 mg 180 mg PO DAILY@11/29/20 11/28/24 11/30/24 History capsule,extended release 24 hr hydrochlorothiazide 25 mg tablet 25 mg PO DAILY@11/29/20 11/28/24 11/29/24 History metoprolol tartrate 50 mg tablet 50 mg PO Q12H 11/29/20 11/28/24 11/30/24 History rivaroxaban 20 mg tablet (Xarelto) 20 mg PO DAILY@11/29/20 11/28/24 11/27/24 History Allergies Allergy/AdvReac Type Severity Reaction Status Date / Time lisinopril Allergy ADR-Cough Verified 11/28/24 08:34 Current Medications Generic Name Dose Route Start Last Admin Trade Name Freq PRN Reason Stop Dose Admin Sodium Chloride 500 mls @ 15 mls/hr 11/30/24 08:08 11/30/24 08:32 Sodium Chloride 0.9% IV 12/01/24 08:07 15 mls/hr .Q24H PRN Administration COLONOSCOPY FLUIDS PFSH Anesthesia Medical History (Updated 11/21/24 @ 09:14 by Luis Coffman DO) Hypertension Afib Fatty liver Symptomatic cholelithiasis Surgical History (Updated 11/21/24 @ 09:14 by Luis Coffman DO) H/O cardiac radiofrequency ablation History of laparoscopic cholecystectomy (~12/2020) History of colonoscopy Social History Smoking and tobacco/nicotine status: former use of tobacco/nicotine (quit 25 years ago) Data Anesthesia Cardiac Studies: No Data to Display
--- NOTE | 2024-11-30 09:23 | W.PM.OPSUD ---
Surgery/Procedure H&P Update DATE OF PROCEDURE: November 30, 2024 DATE H&P PERFORMED: 11/21/24 H&P UPDATE INFORMATION: I have reviewed H&P completed within last 30 days, I have examined patient prior to procedure and No changes to prior documentation PLANNED PROCEDURE: Operation Date: 11/30/24 09:00 Proposed Procedures p Colonoscopy 60463, G0105, Z12.11, z86.0100(Not Applicable) - Luis Coffman,
[2024-11-30 09:58] VITALS: BP 112/70; PULSE 82; RESP 16; TEMP 36.1; O2SAT 97
[2024-11-30 10:22] VITALS: BP 118/78; PULSE 79; RESP 18; O2SAT 96
--- NOTE | 2024-11-30 10:25 | ANE.PACU2 ---
Inpatient post-anesthesia follow up: Airway intact: Yes Vital signs: Temperature 97.0 F Pulse Rate 79 Respiratory Rate 18 Blood Pressure 118/78 Pulse Oximetry 96 Oxygen Delivery Me thod Room Air Oxygen Flow Rate 4 Fraction of Inspir ed Oxygen Hydration adequate: Yes Nausea and vomiting: No Pain level: 1 Mental status: Baseline
== END 2024-11-30 10:26 | disposition home or self-care (01) ==
PROVIDERS: PCP Family Medicine; Visit Provider Surgery
PROC: 0DJD8ZZ Inspection of Lower Intestinal Tract, Via Natural or Artificial Opening Endoscopic (ICD-10-PCS; CPT 45378; principal; 2024-11-30 09:00)
DX: Z12.11 Encounter for screening for malignant neoplasm of colon (principal); D12.2 Benign neoplasm of ascending colon; D12.5 Benign neoplasm of sigmoid colon; D12.3 Benign neoplasm of transverse colon; K08.109 Complete loss of teeth, unspecified cause, unspecified class; I48.91 Unspecified atrial fibrillation; I10 Essential (primary) hypertension; Z79.899 Other long term (current) drug therapy; Z88.8 Allergy status to other drugs, medicaments and biological substances; Z87.891 Personal history of nicotine dependence
CPT/HCPCS: 45385; 88305; J2704; J7040